=== PATIENT | female | born 1950 | race Asian ===

== ENCOUNTER 2018-07-07 20:59 | Inpatient (IN) | payer MEDICARE ==
[~2018-07-07] VITALS: Ht 162.6 cm; Wt 94.3 kg
[2018-07-07 22:11] LABS: BASO % 0.3 % (0.0-2.0); EOS % 0.3 % (0-4.0); GRAN # 9.2 (1.4-6.5); HEMATOCRIT 40.5 % (37.0-47.0); HEMOGLOBIN 13.9 g/dl (12.5-16.0); LYMPH # 0.8 (1.2-3.4); LYMPH % 7.8 % (20.0-51.0); MEAN CELL VOLUME 93 fl (80.0-100.0); MEAN CORPUSCULAR HEMOGLOBIN 32 pg (27.0-31.0); MEAN CORPUSCULAR HGB CONC 34 g/dl (33.0-37.0); MEAN PLATELET VOLUME 12.2 fl (7.4-10.4); MONO # 0.7 (0.1-0.6); MONO % 6.2 % (1.7-9.3); PLATELET COUNT 218 K/mm3 (130-400); RED BLOOD COUNT 4.38 M/mm3 (4.10-5.30); REDCELL DISTRIBUTION WIDTH-CV 12.3 % (11.5-14.5)
[2018-07-07 22:21] LABS: ALANINE AMINOTRANSFERASE 228 U/L (9-52); ALBUMIN 4.1 gm/dL (3.5-5.0); ALKALINE PHOSPHATASE 327 U/L (50-136); ANION GAP 11 mmol/L (7-16); AST,SGOT 601 U/L (15-37); BILIRUBIN,TOTAL 2.6 mg/dL (0.0-1.0); BLOOD UREA NITROGEN 20 mg/dL (7-17); CALCIUM 9.2 mg/dL (8.4-10.2); CARBON DIOXIDE 27 mmol/L (22-30); CHLORIDE 95 mmol/L (98-107); CREATINE KINASE 24 U/L (30-135); CREATININE, serum 1.58 (0.52-1.25); GLUCOSE 179 mg/dL (74-106); LIPASE 65 U/L (23-300); MAGNESIUM 2.1 mg/dL (1.6-2.3); SODIUM 133 mmol/L (137-145); TOTAL PROTEIN 7.5 gm/dL (6.4-8.2)
[2018-07-07 22:28] LABS: POTASSIUM 2.9 mmol/L (3.4-5.0)
[2018-07-07 22:29] LABS: TROPONIN-I < 0.012 ng/mL (0.000-0.035)
[2018-07-07] MEDS ORDERED: HYZAAR 25 MG-101 TAB PO (22:36)
[2018-07-07] MEDS ORDERED: LIPITOR 10MG10 MG PO (22:37)
[2018-07-07] MEDS ORDERED: NEURONTIN300 MG/CAP PO (22:37)
[2018-07-07] MEDS ORDERED: MOBIC15 MG PO (22:38)
[2018-07-07 22:41] LABS: C-REACTIVE PROTEIN 15.1 mg/dL (0.0-0.9)
[2018-07-08 00:42] LABS: INR 1.1 (0.8-3.0); PROTHROMBIN TIME 12.4 SECONDS (9.7-12.8)
[2018-07-08 02:28] VITALS: BP 100/44; PULSE 78; TEMP 97.7
--- NOTE | 2018-07-08 03:09 | NUR ---
Patient settled in room with call light in reach. Denies pain at this time. Spouse at bedside and answers majority of questions for patient. Patient appears groggy. Fluids running to left AC. Site to right hand flushes with no difficulty. Questions answered and education provided about diagnosis. Spouse states he will stay the night. Patient resting well at this time. Will remain NPO.
[2018-07-08 04:52] VITALS: BP 103/56; PULSE 75; TEMP 98.5
--- NOTE | 2018-07-08 06:46 | NUR ---
Patient rested well throughout the night. Denies pain thus far. Denies any further needs. Spouse at bedside.
[2018-07-08 11:21] LABS: HEMOGLOBIN 12.4 g/dl (12.5-16.0); MEAN CELL VOLUME 93 fl (80.0-100.0); MEAN CORPUSCULAR HEMOGLOBIN 32 pg (27.0-31.0); MEAN CORPUSCULAR HGB CONC 35 g/dl (33.0-37.0); MEAN PLATELET VOLUME 11.3 fl (7.4-10.4); PLATELET COUNT 206 K/mm3 (130-400); RED BLOOD COUNT 3.87 M/mm3 (4.10-5.30); REDCELL DISTRIBUTION WIDTH-CV 12.7 % (11.5-14.5)
[2018-07-08 11:24] LABS: HEMATOCRIT 35.9 % (37.0-47.0)
[2018-07-08 11:28] LABS: ALBUMIN 3.4 gm/dL (3.5-5.0); CALCIUM 8.3 mg/dL (8.4-10.2); CREATININE, serum 1.42 (0.52-1.25); POTASSIUM 3.4 mmol/L (3.4-5.0); TOTAL PROTEIN 6.5 gm/dL (6.4-8.2)
[2018-07-08 11:57] LABS: LYMPHOCYTE 11 % (20.0-51.0); NEUTROPHILS 86 % (42.0-75.2); PLATELET ESTIMATE NORMAL (NORMAL)
[2018-07-08 14:05] VITALS: BP 100/44; PULSE 86; TEMP 98.1
--- NOTE | 2018-07-08 14:10 | NUR ---
PATIENT TAKEN FOR MRI VIA WHEELCHAIR. WILL WAIT FOR ARRIVAL BACK TO ROOM 324.
--- NOTE | 2018-07-08 14:45 | NUR ---
PATIENT ARRIVED BACK TO ROOM 324 VIA WHEELCHAIR FROM MRI.
--- NOTE | 2018-07-08 14:56 | NUR ---
JAK student met with patient and patient's (Jose) to discuss discharge plan. Patient lives in [place] with her . Patient's PCP is Dr. Lal and she uses the [facility] in [place]. Patient does not use any DME and reports independence with ADLs. Patient does not have a DPOA-HC completed and was not interested in completing one at this time. Patient plans to return home with her upon discharge. No identified needs at this time.
[2018-07-08 17:19] VITALS: BP 99/53; PULSE 80; TEMP 97.6
[2018-07-08 17:56] LABS: CALCIUM 8.5 mg/dL (8.4-10.2); CREATININE, serum 1.26 (0.52-1.25)
--- NOTE | 2018-07-08 19:00 | NUR ---
END OF SHIFT NOTE. SEE MORNING ASSESSMENT. PATIENT A&O. VSS. PRESENT AT THE BEDSIDE THROUGHOUT THE DAY. PATIENT RATES HER PAIN A 3-5/10 ON A 0-10 SCALE THROUGHOUT THE SHIFT. PATIENT REFUSED PAIN MEDICATION WHEN OFFERED. PATIENT TOLERATED AND CLEAR LIQUID DIET FOR DINNER WITHOUT ANY COMPLAINTS OF N/V. REPORT GIVEN TO [employer].
[2018-07-08 21:45] VITALS: BP 113/51; PULSE 81; TEMP 98.3
--- NOTE | 2018-07-08 23:18 | NUR ---
Patient resting in bed with eyes closed. Noted to have watery stool before assessment was completed. Patient denies pain. Fluids continue to left forearm. Denies any further needs. Call light in place.
[2018-07-09] VITALS (12 sets, daily range): BP systolic 105–148; BP diastolic 48–79; PULSE 72–98; TEMP 97.6–99.2
--- NOTE | 2018-07-09 03:03 | NUR ---
Patient continues to rest well with eyes closed. No indications of pain. Fluids continue. Remains NPO.
[2018-07-09 06:48] LABS: BASO % 0.6 % (0.0-2.0); EOS # 0.2 (0.0-0.7); EOS % 3.1 % (0-4.0); GRAN # 3.1 (1.4-6.5); GRAN % 64.9 % (42.2-75.2); HEMOGLOBIN 11.3 g/dl (12.5-16.0); LYMPH # 1.1 (1.2-3.4); MEAN CELL VOLUME 94 fl (80.0-100.0); MEAN CORPUSCULAR HEMOGLOBIN 32 pg (27.0-31.0); MEAN CORPUSCULAR HGB CONC 33 g/dl (33.0-37.0); MEAN PLATELET VOLUME 11.5 fl (7.4-10.4); MONO # 0.4 (0.1-0.6); MONO % 9.2 % (1.7-9.3); PLATELET COUNT 203 K/mm3 (130-400); RED BLOOD COUNT 3.59 M/mm3 (4.10-5.30); REDCELL DISTRIBUTION WIDTH-CV 12.7 % (11.5-14.5)
[2018-07-09 06:57] LABS: INR 1.1 (0.8-3.0); PROTHROMBIN TIME 12.2 SECONDS (9.7-12.8)
[2018-07-09 06:58] LABS: ALBUMIN 3.2 gm/dL (3.5-5.0); BILIRUBIN,TOTAL 2.3 mg/dL (0.0-1.0); CALCIUM 8.4 mg/dL (8.4-10.2); CREATININE, serum 1.12 (0.52-1.25); TOTAL PROTEIN 6.2 gm/dL (6.4-8.2)
[2018-07-09 07:03] LABS: HEMATOCRIT 33.8 % (37.0-47.0)
--- NOTE | 2018-07-09 11:40 | NUR ---
First visit from the television program director. No needs right now.
--- NOTE | 2018-07-09 11:45 | NUR ---
Patient is going to surgery. Fran signed and on the chart. Patient showered before going downstairs. No other changes at this time. following patient down.
--- NOTE | 2018-07-09 12:59 | NUR ---
Reported onto floor to INES Jon. Pt pleasant upon entry to room. Assisted pt to shower to prep for surgery. Pt stated she become dizzy and nauseous. Intervened by having patient dangle in bed prior to ambulating. Pt showered and returned to bed. Pt states no needs. Call light within reach and bed in lowest position.
--- NOTE | 2018-07-09 13:03 | NUR ---
Pt left floor for surgery at 1200.
--- NOTE | 2018-07-09 18:16 | NUR ---
patient is resting in bed. Family in room at this time. She has been up to restroom with assistance x2 and voided a large amount. IV fluids continue. Call light in easy reach of patient. Reported off to INES Jon.
[2018-07-10 00:30] VITALS: BP 134/40; PULSE 83; TEMP 97.8
--- NOTE | 2018-07-10 01:46 | NUR ---
Patient noted to be doing well this shift. Vitals remain stable. MAYITO drain emptied 40ml bloody drainage. Lap sites remain CDI. IV fluids continue to left forearm. States she is having trouble falling asleep. Patient utilizes call light effectively and is SBA to the restroom. Noted to be voiding well. Frequently misses hat. Noted to be resting with eyes closed.
[2018-07-10 04:40] VITALS: BP 115/65; PULSE 75; TEMP 98.5
--- NOTE | 2018-07-10 06:27 | NUR ---
Patient rested well throughout the night. Pain well controlled. IVF continue to left forearm. Denies any further needs. Will report off to day shift nurse.
[2018-07-10 07:27] VITALS: BP 127/64; PULSE 76; TEMP 98.8
[2018-07-10 07:40] LABS: BASO % 0.2 % (0.0-2.0); EOS % 0.1 % (0-4.0); GRAN # 6.9 (1.4-6.5); GRAN % 76.7 % (42.2-75.2); HEMOGLOBIN 11.4 g/dl (12.5-16.0); LYMPH # 1.5 (1.2-3.4); LYMPH % 16.7 % (20.0-51.0); MEAN CELL VOLUME 95 fl (80.0-100.0); MEAN CORPUSCULAR HEMOGLOBIN 32 pg (27.0-31.0); MEAN CORPUSCULAR HGB CONC 33 g/dl (33.0-37.0); MEAN PLATELET VOLUME 11.3 fl (7.4-10.4); MONO # 0.5 (0.1-0.6); PLATELET COUNT 238 K/mm3 (130-400); RED BLOOD COUNT 3.61 M/mm3 (4.10-5.30); REDCELL DISTRIBUTION WIDTH-CV 12.7 % (11.5-14.5)
[2018-07-10 07:47] LABS: ALBUMIN 3.1 gm/dL (3.5-5.0); BILIRUBIN,TOTAL 0.8 mg/dL (0.0-1.0); CALCIUM 8.6 mg/dL (8.4-10.2); CREATININE, serum 0.84 (0.52-1.25); TOTAL PROTEIN 5.9 gm/dL (6.4-8.2)
[2018-07-10 07:49] LABS: HEMATOCRIT 34.1 % (37.0-47.0)
--- NOTE | 2018-07-10 09:00 | NUR ---
Patient alert and oriented, answers questions appropriately. See assessment. Abdomen soft, non tender, non distended. Bowel sounds active x4 quads. +Flatus. Lap sites with edges well approximated, no drainage noted. MAYITO in place, compressed. C/o occasional gas pain, no other c/o at this time.
[2018-07-10 11:15] VITALS: BP 135/68; PULSE 77; TEMP 98.5
--- NOTE | 2018-07-10 11:17 | NUR ---
Initial visit; Patient thanked Aviation Program Manager for looking in on her and wishing her well and God's blessings.
[2018-07-10] MEDS ORDERED: AMOXICILLIN 8751 TAB PO (12:23)
[2018-07-10] MEDS ORDERED: PERCOCET 325 MG1 TA2 PO (12:23)
[2018-07-10] MEDS ORDERED: MOTRIN 600600 MG/TAB PO (12:24)
--- NOTE | 2018-07-10 13:37 | NUR ---
Removed post-operative, MAYITO drain from patients abdomen after removing two sutures. Dressed incision site with gauze and a tegaderm. Pt tolerated well. visiting at bedsite, awaiting discharge. Bed in lowest position. Call light within reach.
--- NOTE | 2018-07-10 14:15 | NUR ---
Discharge instructions reviewed with patient and spouse, verbalized understanding. Discharged via wheelchair to auto/home with spouse at 1410.
== END 2018-07-10 14:10 | disposition home or self-care (01) | DRG 418 ==
LOC: COL.ER 20:59 → SURG 07-08 00:57
PROVIDERS: Emergency Medicine; ADMIT Surgery
PROC: BF101ZZ Fluoroscopy of Bile Ducts using Low Osmolar Contrast (ICD-10-PCS; 2018-07-09)
PROC: 0FT44ZZ Resection of Gallbladder, Percutaneous Endoscopic Approach (ICD-10-PCS; principal; 2018-07-09 12:00)
DX: K81.0 Acute cholecystitis (principal); N17.9 Acute kidney failure, unspecified; I10 Essential (primary) hypertension; E87.6 Hypokalemia; D64.9 Anemia, unspecified; E78.5 Hyperlipidemia, unspecified; G25.81 Restless legs syndrome
CPT/HCPCS: A9284; J0360; J1100; J2405; J2543; J2704; J3010; J3480; J7030; J7120; Q9967

== ENCOUNTER → 2019-04-15 | Outpatient (CLI) | payer MEDICARE ==
[~2019-04-15] MED LIST: AMOXICILLIN 8751 TAB PO; HYZAAR 25 MG-101 TAB PO; LIPITOR 10MG10 MG PO; MOBIC15 MG PO; MOTRIN 600600 MG/TAB PO; NEURONTIN300 MG/CAP PO; PERCOCET 325 MG1 TA2 PO
== END ==
LOC: MC.RAD 08:51
DX: Z12.31 Encounter for screening mammogram for malignant neoplasm of breast (principal)

== ENCOUNTER → 2020-04-17 | Outpatient (CLI) | payer MEDICARE | LOC: MC.RAD 07:09 | DX: Z12.31 Encounter for screening mammogram for malignant neoplasm of breast (principal) ==